=== PATIENT | female | born 2000 | race Caucasian/White ===

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

== ENCOUNTER 2024-04-13 16:29 | Emergency (ER) | payer OTHER, SELFPAY ==
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
[2024-04-13 17:09] VITALS: BP 106/69; BP 154/90; PULSE 83; PULSE 90; RESP 18; TEMP 36.8; O2SAT 97; O2SAT 99; BMI 38.2
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
[2024-04-13 20:37] VITALS: BP 117/64; PULSE 87; RESP 18; TEMP 36.8; O2SAT 98
[2024-04-13 22:08] VITALS: BP 113/65; PULSE 78; RESP 18; TEMP 36.7; O2SAT 97
[2024-04-13] MEDS: Ibuprofen 600 MG TABLET PO (22:21)
[2024-04-13] MEDS: methocarbamoL 750 MG TABLET PO (22:22)
[2024-04-13 23:41] VITALS: BP 113/65; PULSE 78; RESP 18; TEMP 36.7; O2SAT 97
== END 2024-04-13 23:42 | disposition home or self-care (01) ==
PROVIDERS: Emergency Provider Emergency Medicine Emergency Medical Services
DX: T14.8XXA Other injury of unspecified body region, initial encounter (principal); V43.52XA Car driver injured in collision with other type car in traffic accident, initial encounter; R51.9 Headache, unspecified; Y93.89 Activity, other specified; Y92.411 Interstate highway as the place of occurrence of the external cause; Y99.9 Unspecified external cause status
CPT/HCPCS: 70450; 72125; 99283; 99284